=== PATIENT | male | born 1975 | race Caucasian/White ===

== ENCOUNTER 2016-11-07 00:48 | Observation (INO) | payer MEDICARE, OTHER ==
--- NOTE | 2016-11-07 01:50 | PDOC ---
History of Present Illness - General History Source: Patient Exam Limitations: No Limitations - History of Present Illness Initial Comments: 11/07/16 03:18 The patient is a 40-year-old male with a significant past medical history of asthma and hypothyroidism, and presents to the emergency department with abdominal pain since yesterday afternoon. He reports the abdominal pain is located in the epigastric region, and radiates inferiorly. He describes the pain became a burning sensation at 7pm yesterday. He reports he had soup with rice yesterday, and had a sandwich for breakfast today when the pain returned. He states he drank two glasses of milk in the afternoon with moderate relief. He denies taking any medications for the abdominal pain. He also reports mild dysuria. He is visiting from [place]. The patient is a [place] speaker. The patient denies chest pain, shortness of breath, headache and dizziness. The patient denies fever, chills, nausea, vomit, diarrhea and constipation. The patient denies frequency, urgency and hematuria. Allergies: aspirin Past Surgical History: None reported Social History: No toxic habits reported <Cookie Harris - Last Filed: 11/07/16 03:17> <Nancy Guerrero - Last Filed: 11/08/16 04:15> - General Chief Complaint: Pain Stated Complaint: STOMACH PAIN Time Seen by Provider: 11/07/16 01:50 Past History <Cookie Harris - Last Filed: 11/07/16 03:17> - Past Medical History Thyroid Disease: Yes (hypothyroid) - Psycho/Social/Smoking Cessation Hx Suicidal Ideation: No Smoking History: Never smoked Hx Alcohol Use: No Drug/Substance Use Hx: No <Nancy Guerrero - Last Filed: 11/08/16 04:15> - Past Medical History Allergies/Adverse Reactions: Allergies Allergy/AdvReac Type Severity Reaction Status Date / Time aspirin Allergy Rash Verified 11/07/16 01:07 Home Medications: Ambulatory Orders Albuterol Sulfate Inhaler - [Ventolin HFA Inhaler -] 2 inh PO Q4H PRN #1 inh 01/17 Levothyroxine Sodium [Synthroid] 200 mcg PO DAILY #30 tablet 11/07/16 Pantoprazole Sodium [Protonix -] 40 mg PO DAILY #30 tab 11/07/16 Review of Systems - Review of Systems Able to Perform ROS?: Yes Comments:: 11/07/16 03:18 CONSTITUTIONAL: Absent: fever, chills, diaphoresis, generalized weakness, malaise, loss of appetite HEENT: Absent: rhinorrhea, nasal congestion, throat pain, throat swelling, difficulty swallowing, mouth swelling, ear pain, eye pain, visual changes CARDIOVASCULAR: Absent: chest pain, syncope, palpitations, irregular heart rate, lightheadedness , peripheral edema RESPIRATORY: Absent: cough, shortness of breath, dyspnea with exertion, orthopnea, wheezing, stridor, hemoptysis GASTROINTESTINAL: Present: (+) abdominal pain Absent: abdominal distension, nausea, vomiting, diarrhea, constipation, melena, hematochezia GENITOURINARY: Present: (+) dysuria Absent: frequency, urgency, hesitancy, hematuria, flank pain, genital pain MUSCULOSKELETAL: Absent: myalgia, arthralgia, joint swelling SKIN: Absent: rash, itching, pallor HEMATOLOGIC/IMMUNOLOGIC: Absent: easy bleeding, easy bruising, lymphadenopathy, frequent infections ENDOCRINE: Absent: unexplained weight gain, unexplained weight loss, heat intolerance, cold intolerance NEUROLOGIC: Absent: headache, focal weakness or paresthesias, dizziness, unsteady gait, seizure, mental status changes, bladder or bowel incontinence PSYCHIATRIC: Absent: anxiety, depression, suicidal or homicidal ideation, hallucinations. <Cookie Harris - Last Filed: 11/07/16 03:17> *Physical Exam - Vital Signs Last Vital Signs Temp Pulse Resp BP Pulse Ox 98.0 F 63 18 123/76 99 11/07/16 01:05 11/07/16 01:05 11/07/16 01:05 11/07/16 01:05 11/07/16 01:05 - Physical Exam Comments: 11/07/16 03:20 GENERAL: Well developed, well nourished. Awake and alert. No acute distress. HEENT: Normocephalic, atraumatic. PERRLA, EOMI. No conjunctival pallor. Sclera are non- icteric. Moist mucous membranes. Oropharynx is clear. NECK: Supple. Full ROM. No JVD. Carotid pulses 2+ and symmetric, without bruits. No thyromegaly. No lymphadenopathy. CARDIOVASCULAR: Regular rate and rhythm. No murmurs, rubs, or gallops. Distal pulses are 2+ and symmetric. PULMONARY: No evidence of respiratory distress. Lungs clear to auscultation bilaterally. No wheezing, rales or rhonchi. ABDOMINAL: (+) Some gas. Soft. Non-tender. Non-distended. No rebound or guarding. No organomegaly. Normoactive bowel sounds. MUSCULOSKELETAL Normal range of motion at all joints. No bony deformities or tenderness. No CVA tenderness. EXTREMITIES: No cyanosis. No clubbing. No edema. No calf tenderness. SKIN: Warm and dry. Normal capillary refill. No rashes. No jaundice. NEUROLOGICAL: Alert, awake, appropriate. Cranial nerves 2-12 intact. No deficits to light touch and temperature in face, upper extremities and lower extremities. No motor deficits in the in face, upper extremities and lower extremities. Normoreflexic in the upper and lower extremities. Normal speech. Toes are down- going bilaterally. Gait is normal without ataxia. PSYCHIATRIC: Cooperative. Good eye contact. Appropriate mood and affect. <Cookie Harris - Last Filed: 11/07/16 03:17> - Vital Signs Last Vital Signs Temp Pulse Resp BP Pulse Ox 98.0 F 63 18 123/76 99 11/07/16 01:05 11/07/16 01:05 11/07/16 01:05 11/07/16 01:05 11/07/16 01:05 <Nancy Guerrero - Last Filed: 11/08/16 04:15> ED Treatment Course - LABORATORY CBC & Chemistry Diagram: 11/07/16 02:45 11/07/16 02:45 - ADDITIONAL ORDERS Additional order review: 11/07/16 02:45 RBC 4.02 MCV 93.3 MCHC 33.7 RDW 14.6 MPV 9.4 Neutrophils % 59.7 Lymphocytes % 28.5 Monocytes % 9.7 Eosinophils % 1.4 Basophils % 0.7 - Medications Given in the ED: ED Medications Discontinued Medications Generic Name Dose Route Start Last Admin Trade Name Maynorq PRN Reason Stop Dose Admin Al Hydroxide/Mg Hydroxide 30 ml 11/07/16 02:08 11/07/16 02:51 Mylanta Oral Suspension - PO 11/07/16 02:09 30 ml ONCE ONE Administration Pantoprazole Sodium 40 mg 11/07/16 02:08 11/07/16 02:51 Protonix - PO 11/07/16 02:09 40 mg ONCE ONE Administration <Cookie Harris - Last Filed: 11/07/16 03:17> - LABORATORY CBC & Chemistry Diagram: 11/07/16 02:45 11/07/16 02:45 <Nancy Guerrero - Last Filed: 11/08/16 04:15> Medical Decision Making - Medical Decision Making 11/08/16 03:58 Pt comes with feeling unwell. Abd pain and bloating and nonspecific malaise. [place]. He has a hx of hypothyroidism, and he takes synthroid Last time he checked his TSH and thyroid panel was over a year ago. Pt. will have basic labs and thyroid panel. His EKG is storm; TSH is 100s and he is hypothyroid, not well controlled. He will be admitted for eval of thyroid disorder and appropriate meds. <Nancy Guerrero - Last Filed: 11/08/16 04:15> *DC/Admit/Observation/Transfer - Attestations Scribe Attestion: 11/07/16 03:18 Documentation prepared by Cookie Harris, acting as medical nurse for Nancy Guerrero MD. <Cookie Harris - Last Filed: 11/07/16 03:17> - Discharge Dispostion Admit: Yes <Nancy Guerrero - Last Filed: 11/08/16 04:15> Diagnosis at time of Disposition: Hypothyroid, Abdominal pain - Discharge Dispostion Disposition: HOME Condition at time of disposition: Improved - Prescriptions
[2016-11-07] MEDS ORDERED: MAG HYDROX/AL HYDROX/SIMETH 30 ML UNIT-DOSE CUP PO ONE (02:08)
[2016-11-07] MEDS ORDERED: PANTOPRAZOLE 40 MG TABLET (FP) PO ONE (02:08)
[2016-11-07] MEDS ORDERED: PANTOPRAZOLE 40 MG TABLET (FP) ONE (02:47)
[2016-11-07] MEDS ORDERED: MAG HYDROX/AL HYDROX/SIMETH 30 ML UNIT-DOSE CUP ONE (02:48)
[2016-11-07 02:58] LABS: BASOPHIL 0.7 % (0-2.0); EOSINOPHIL 1.4 % (0-4.5); MCH 31.4 pg (25.7-33.7); MCHC 33.7 g/dl (32.0-35.9); MEAN CELL VOLUME 93.3 fl (80-96); MEAN PLT VOLUME 9.4 fl (7.5-11.1); NEUTROPHILS 59.7 % (42.8-82.8); PLATELET COUNT 214 K/MM3 (134-434); RDW 14.6 % (11.9-15.9); WHITE BLOOD COUNT 5.1 K/mm3 (4.0-10.0)
[2016-11-07 03:25] LABS: ALBUMIN 4.2 g/dl (3.4-5.0); ANION GAP 7 (8-16); BILIRUBIN,TOTAL 0.5 mg/dL (0.2-1.0); CALCIUM 8.6 mg/dL (8.5-10.1); CO2 29 mmol/L (21-32); COCKROFT - GAULT 110.66; CREATININE 0.9 mg/dL (0.7-1.3); GLUCOSE,RANDOM 75 mg/dL (74-106); SGOT/AST 35 U/L (15-37); SGPT/ALT 45 U/L (12-78); TOT PROT 7.2 g/dl (6.4-8.2)
[2016-11-07 03:53] LABS: ALK PHOS 70 U/L (45-117)
[2016-11-07] MEDS ORDERED: SODIUM CHLORIDE 0.9% 500 ML INFUS.BAG IV ONE (04:40)
--- NOTE | 2016-11-07 04:49 | PN ---
Teaching Attending Note Name of Resident: Pablo Mustafa ATTENDING PHYSICIAN STATEMENT I saw and evaluated the patient. I reviewed the resident's note and discussed the case with the resident. I agree with the resident's findings and plan as documented. SUBJECTIVE: 40 yo M with hx of asthma and hypothyriodism who presents with abdominal pain. Notes his abdominal pain is burning in nature, and is intermittent. States pain started after eating and only happened once. No chest pain, pressure, headaches , dry skin or shortness of breath. Pt. states that in [facility] in June and his Synthroid dose was 200mcg, notes he got his next RX at [facility] on 06/18 for 30 days of Levothyroxine and never followed up after his discharge from the ED at that time. His next RX was again from [facility] , with no follow up with same Levothyroxine dose. Pt. states he is compliant with medication, but unsure of dates of when he received his Levothyroxine. Denies constipation or n/v/d. OBJECTIVE: Physical: Vital Signs Period Temp Pulse Resp BP Sys/Fischer Pulse Ox Last 24 Hr 98.0 F 63 18 123/76 99 GEN: Young Man in NAD, Resting in bed able to speak full sentences. HEENT: NCAT, PERRL, throat without erythema or exudates. CARD: RRR S1, S2 ABD: BSX4, mild periepigastic pain, non-distended, non- tender EXT: - C/C/E CXR/Abd Xray- Pending EKG- Pending ASSESSMENT AND PLAN: 40 yo M with pmhx of hypothyriodism and asthma who presents with abdominal pain 1.) Abdominal Pain - Most likely gastritis - Protonix 2.) Hypothyriodism - Inc. TSH- Stat FT4 - On home Synthriod dose of 200mcg as per pt., Await FT4 and adjust dose accordingly - Needs outpt. PCP and follow up in 6 weeks - Ekg 3.) Asthma - C/w nebs 4.) DVT ppx - Low risk- [facility] in Obs
[2016-11-07] MEDS ORDERED: FAMOTIDINE 20 MG/50 ML IVPB 50 ML IVPB ONE ×2 (04:53→06:17)
--- NOTE | 2016-11-07 05:44 | HP ---
CHIEF COMPLAINT: Epigastric pain PCP: None HISTORY OF PRESENT ILLNESS: 40 year old male with pmh of Hyperthyroidism, asthma, sinusitis presented to the emergency room with complaint of epigastric pain. the symptoms started last night and at 7pm after eating rice and soup, burning, constant, no radiating, moderate intensity. Pt went away when he went to sleep. Ths morning upon waking up the pain has return. The epigatsric pain improved with Maalox and protonix which The received in the ED. The patient said he never had this pain before, denies h/o heartburn or acid. Pt denies any fever, chills, nausea, vomiting, diarrhea or constipation, no sick contact. The patient also complained of pain and burning on urination, no penile discharge, no rash, no lesion. The Patient also said he has been very complaint with his levothyroxine, 200mcg daily. he only had a 30 day supply from his last ED visit at [facility], he went to [facility] where he said he got the same medication. he complained of occasional tiredness, fatigue, cold intolerance, dry skin but no weight gain, no decreased in appetite, no hair loss, no change in vision, no constipation, no muscle weakness. ER course was notable for: (1) Maalox, Protonix (2)CXR, abdominal Xray Recent Travel: [facility] PAST MEDICAL HISTORY: Hyperthyroidism, asthma, sinusitis PAST SURGICAL HISTORY: penile circumcision Social History: Smoking:denies Alcohol:denies Drugs: denies Family History: Grandmother with thyroid disease, mother with hypertension Allergies aspirin Allergy (Verified 11/07/16 01:07) Rash HOME MEDICATIONS: Home Medications Medication Instructions Recorded Albuterol Sulfate Inhaler - 2 inh PO Q4H PRN #1 inh 06/20/16 [Ventolin Hfa Inhaler -] Levothyroxine Sodium [Synthroid] 200 mcg PO DAILY #30 tablet 06/20/16 REVIEW OF SYSTEMS CONSTITUTIONAL: generalized weakness sometimes Absent: fever, chills, diaphoresis, malaise, loss of appetite, weight change HEENT: Absent: rhinorrhea, nasal congestion, throat pain, throat swelling, difficulty swallowing, mouth swelling, ear pain, eye pain, visual changes CARDIOVASCULAR: Absent: chest pain, syncope, palpitations, irregular heart rate, lightheadedness , peripheral edema RESPIRATORY: Absent: cough, shortness of breath, dyspnea with exertion, orthopnea, wheezing, stridor, hemoptysis GASTROINTESTINAL:abdominal pain Absent: abdominal distension, nausea, vomiting, diarrhea, constipation, melena , hematochezia GENITOURINARY: Absent: dysuria, frequency, urgency, hesitancy, hematuria, flank pain, genital pain MUSCULOSKELETAL: Absent: myalgia, arthralgia, joint swelling, back pain, neck pain SKIN: Absent: rash, itching, pallor HEMATOLOGIC/IMMUNOLOGIC: Absent: easy bleeding, easy bruising, lymphadenopathy, frequent infections ENDOCRINE:cold intolerance Absent: unexplained weight gain, unexplained weight loss, heat intolerance, NEUROLOGIC: Absent: headache, focal weakness or paresthesias, dizziness, unsteady gait, seizure, mental status changes, bladder or bowel incontinence PSYCHIATRIC: Absent: anxiety, depression, suicidal or homicidal ideation, hallucinations. PHYSICAL EXAMINATION Vital Signs - 24 hr 11/07/16 01:05 Temperature 98.0 F Pulse Rate 63 Respiratory 18 Rate Blood Pressure 123/76 O2 Sat by Pulse 99 Oximetry (%) GENERAL: Awake, alert, and fully oriented, in no acute distress. HEAD: Normal with no signs of trauma. EYES: Pupils equal, round and reactive to light, extraocular movements intact, sclera anicteric, conjunctiva clear. No lid lag. EARS, NOSE, THROAT: Ears normal, nares patent, oropharynx clear without exudates. Moist mucous membranes. NECK: Normal range of motion, supple without lymphadenopathy, JVD, or masses. LUNGS: Breath sounds equal, clear to auscultation bilaterally. No wheezes, and no crackles. No accessory muscle use. HEART: Regular rate and rhythm, normal S1 and S2 without murmur, rub or gallop. ABDOMEN: Soft, tender, not distended, normoactive bowel sounds, no guarding, no rebound, no masses. No hepatomegaly or splenomegaly. MUSCULOSKELETAL: Normal range of motion at all joints. No bony deformities or tenderness. No CVA tenderness. UPPER EXTREMITIES: 2+ pulses, warm, well-perfused. No cyanosis. No clubbing. No peripheral edema. LOWER EXTREMITIES: 2+ pulses, warm, well-perfused. No calf tenderness. No peripheral edema. NEUROLOGICAL: Cranial nerves II-XII intact. Normal speech. Normal gait. PSYCHIATRIC: Cooperative. Good eye contact. Appropriate mood and affect. SKIN: Warm, dry, normal turgor, no rashes or lesions noted, normal capillary refill. Laboratory Results - last 24 hr 11/07/16 11/07/16 02:45 02:45 WBC 5.1 RBC 4.02 Hgb 12.6 Hct 37.5 MCV 93.3 MCHC 33.7 RDW 14.6 Plt Count 214 MPV 9.4 Neutrophils % 59.7 Lymphocytes % 28.5 Monocytes % 9.7 Eosinophils % 1.4 Basophils % 0.7 Sodium 139 Potassium 3.7 Chloride 103 Carbon Dioxide 29 Anion Gap 7 L BUN 17 Creatinine 0.9 Creat Clearance w eGFR > 60 Random Glucose 75 Calcium 8.6 Total Bilirubin 0.5 AST 35 ALT 45 Alkaline Phosphatase 70 Total Protein 7.2 Albumin 4.2 TSH 125.00 H ASSESSMENT/PLAN: 40 year old male with pmh of Hyperthyroidism, asthma, sinusitis presented to the emergency room with complaint of burning epigastric pain which improved with Maalox and protonix. Pt was found to have a TSH of 125. While the patient profess his compliance to his levothyroxine he only had a month supply back in June and he refilled the medication in [facility]. Abdominal Pain r/o GERD, gastritis, PUD Pain Improved with protonix and Maalox normal CBC, chemistry and LFTs Lipase Xray of abdomen CXR trial of PPI or H2 antagonist Hypothyrodism Likely related to non compliance or wrong medication TSH 125 Free T3, Free T4 EKG Will resume Levothyroxine 200mcg PO daily Case management to help with insurance or free clinic FEN Fluid: none Electrolytes: normal Chemistry Nutrition: regular diet DVT: early ambulation Disposition: Observation in [facility] Visit type - Emergency Visit Emergency Visit: Yes ED Registration Date: 11/07/16 Care time: The patient presented to the Emergency Department on the above date and was hospitalized for further evaluation of their emergent condition. - New Patient This patient is new to me today: Yes - Critical Care Critical Care patient: No
[2016-11-07] MEDS ORDERED: LEVOTHYROXINE NA 200 MCG TABLET PO SCH (06:00)
[2016-11-07] MEDS ORDERED: ALBUTEROL SO4 6.7 GM HFA INHALER IH PRN (06:09)
[2016-11-07 06:56] VITALS: BMI 20.8
[2016-11-07 07:28] LABS: FREE T4 0.79 ng/dl (0.76-1.16)
[2016-11-07] MEDS ORDERED: MAG HYDROX/AL HYDROX/SIMETH 30 ML UNIT-DOSE CUP PO PRN (08:29)
[2016-11-07] MEDS ORDERED: PANTOPRAZOLE 40 MG TABLET (FP) PO SCH (10:00)
[2016-11-07] MEDS ORDERED: LEVOTHYROXINE NA 200 MCG TABLET PO ONE (11:35)
--- NOTE | 2016-11-07 13:07 | DS ---
Physical Exam: SUBJECTIVE: Patient seen and examined at bedside. OBJECTIVE: Vital Signs Period Temp Pulse Resp BP Sys/Fischer Pulse Ox Last 24 Hr 98 F 59-60 18-20 118-121/72-84 100-100 PHYSICAL EXAM GENERAL: The patient is awake, alert, and fully oriented, in no acute distress. HEAD: Normal with no signs of trauma. EYES: PERRL, extraocular movements intact, sclera anicteric, conjunctiva clear. ENT: Ears normal, nares patent, oropharynx clear without exudates, moist mucous membranes. NECK: Trachea midline, full range of motion, supple. LUNGS: Breath sounds equal, clear to auscultation bilaterally, no wheezes, no crackles, no accessory muscle use. HEART: Regular rate and rhythm, S1, S2 without murmur, rub or gallop. ABDOMEN: Soft, nontender, nondistended, normoactive bowel sounds, no guarding, no rebound, no hepatosplenomegaly, no masses. EXTREMITIES: 2+ pulses, warm, well-perfused, no edema. NEUROLOGICAL: Cranial nerves II through XII grossly intact. Normal speech, gait not observed. LABS CBCD WBC 5.1 K/mm3 (4.0-10.0) 11/07/16 02:45 RBC 4.02 M/mm3 (4.00-5.60) 11/07/16 02:45 Hgb 12.6 GM/dL (11.7-16.9) 11/07/16 02:45 Hct 37.5 % (35.4-49) 11/07/16 02:45 MCV 93.3 fl (80-96) 11/07/16 02:45 MCHC 33.7 g/dl (32.0-35.9) 11/07/16 02:45 RDW 14.6 % (11.9-15.9) 11/07/16 02:45 Plt Count 214 K/MM3 (134-434) 11/07/16 02:45 MPV 9.4 fl (7.5-11.1) 11/07/16 02:45 CMP Sodium 139 mmol/L (136-145) 11/07/16 02:45 Potassium 3.7 mmol/L (3.5-5.1) 11/07/16 02:45 Chloride 103 mmol/L (98-107) 11/07/16 02:45 Carbon Dioxide 29 mmol/L (21-32) 11/07/16 02:45 Anion Gap 7 (8-16) L 11/07/16 02:45 BUN 17 mg/dL (7-18) 11/07/16 02:45 Creatinine 0.9 mg/dL (0.7-1.3) 11/07/16 02:45 Creat Clearance w eGFR > 60 (>60) 11/07/16 02:45 Calcium 8.6 mg/dL (8.5-10.1) 11/07/16 02:45 Total Bilirubin 0.5 mg/dL (0.2-1.0) 11/07/16 02:45 AST 35 U/L (15-37) 11/07/16 02:45 ALT 45 U/L (12-78) 11/07/16 02:45 Alkaline Phosphatase 70 U/L (45-117) 11/07/16 02:45 Total Protein 7.2 g/dl (6.4-8.2) 11/07/16 02:45 Albumin 4.2 g/dl (3.4-5.0) 11/07/16 02:45 Laboratory Results - last 24 hr 11/07/16 11/07/16 06:22 06:22 Lipase 140 TSH 132.00 H D Free T4 0.79 HOSPITAL COURSE: Date of Admission:11/07/16 Date of Discharge: 11/07/16 40 year old male with PMH of hyperthyroidism and asthma,sinusitis presented to the emergency room with a complaint of burning epigastric pain which improved with Maalox and protonix. Pt was found to have a TSH of 125. Abdominal Pain r/o GERD, gastritis, PUD Pain Improved with protonix and Maalox normal CBC, chemistry and LFTs Lipase wnl Xray of abdomen: no acute pathology CXR: unremarkable Tolerated PO Hypothyrodism Likely related to non compliance or wrong medication TSH 125 Resumed home dose of Levothyroxine 200mcg PO daily Minutes to complete discharge: 35 Discharge Summary Reason For Visit: ABDOMINAL PAIN, HYPOTHYROID Current Active Problems Abdominal pain (Acute) Hypothyroid (Acute) Condition: Improved - Instructions Diet, Activity, Other Instructions: Two prescriptions have been sent to your pharmacy. One is for synthroid and the other is for protonix. Take these medications as directed. It is very important you follow up with your primary care provider Dr. Virginia Pritchard [phone] within one week of your discharge. You will need blood work to check your thyroid levels. Return to the emergency department for any new or worsening symptoms. Referrals: Virginia Pritchard Dr. [Other] - 1 Week Disposition: HOME - Home Medications Comprehensive Discharge Medication List: Ambulatory Orders Albuterol Sulfate Inhaler - [Ventolin HFA Inhaler -] 2 inh PO Q4H PRN #1 inh Levothyroxine Sodium [Synthroid] 200 mcg PO DAILY #30 tablet 11/07/16 Pantoprazole Sodium [Protonix -] 40 mg PO DAILY #30 tab 11/07/16 This patient is new to me today: Yes Date on this admission: 11/16/16 Emergency Visit: Yes ED Registration Date: 11/07/16 Care time: The patient presented to the Emergency Department on the above date and was hospitalized for further evaluation of their emergent condition. Critical Care patient: No - Discharge Referral Referred to [facility] Med P.C.: No
[2016-11-07 13:24] VITALS: BP 141/74; PULSE 62; TEMP 97.9
--- NOTE | 2016-11-08 09:08 | EKG ---
Test Reason : Blood Pressure : / mmHG Vent. Rate : 051 BPM Atrial Rate : 051 BPM P-R Int : 144 ms QRS Dur : 098 ms QT Int : 410 ms P-R-T Axes : 063 -03 048 degrees QTc Int : 377 ms SINUS BRADYCARDIA OTHERWISE NORMAL ECG NO PREVIOUS ECGS AVAILABLE Confirmed by SAEED BERG MD ([id number]) on 11/08/2016 9:07:30 AM Referred By: Confirmed By:SAEED BERG MD
== END 2016-11-07 14:06 | disposition home or self-care (01) | DRG 241 ==
LOC: JER 00:48 → JERBED 04:43 → INTOOBSV 04:43 → UNDOADMOB 04:43 → JERBED 05:35 → UNDOADMIN 05:35 → JERBED 06:07 → J6S 06:49 → JERBED 06:49 → J6S 06:49 → UNDODISOB 14:06
PROVIDERS: ADMIT Internal Medicine; ATTEND Nurse Practitioner Acute Care
DX: R10.13 Epigastric pain (principal); R10.9 Unspecified abdominal pain; E03.9 Hypothyroidism, unspecified; J45.909 Unspecified asthma, uncomplicated
CPT/HCPCS: 36415; 71010-TC; 74000-TC; 80053; 83690; 84439; 84443; 84481; 85025; 93005; 93010; 99285-25; G0378

== ENCOUNTER 2016-11-16 18:12 | Emergency (ER) | payer SELFPAY ==
[2016-11-16 18:16] VITALS: BP 133/86; PULSE 76; TEMP 98.3; BMI 21.6
--- NOTE | 2016-11-16 20:06 | PDOC ---
History of Present Illness - General History Source: Patient Exam Limitations: No Limitations - History of Present Illness Initial Comments: 11/16/16 20:23 The patient is a 40 year old male with significant past medical history of hyperthyroidism, asthma, and sinusitis who presents to the ED for right upper quadrant pain. Patient describes pain as a burning sensation that is nonradiating with associated nausea, but no vomiting or diarrhea. He also has complaints of dysuria, but no hematuria, urgency, frequency, or penile discharge. Patient was recently seen in the ED on 11/07 for similar complaints where he was admitted. As per patients records, patient admits to being compliant with his synthroid medications and when recently traveled to [facility] he received the same medications. While he was admitted, patient was found to have a TSH of 125. Patient was treated and discharged later on that day. He returns today for same complaint. The patient denies fever, chills, cough, SOB, chest pain, and palpitations. Allergies: aspirin Social History: No alcohol, tobacco, or drug use reported. Past Surgical History: None reported PCP: None reported <Annabel Benson - Last Filed: 11/16/16 20:23> - General History Source: Patient <LucioWillis ramirez - Last Filed: 11/16/16 21:12> - General Chief Complaint: Pain Stated Complaint: PAIN Time Seen by Provider: 11/16/16 20:06 Past History <Annabel Benson - Last Filed: 11/16/16 20:23> - Past Medical History Asthma: Yes Thyroid Disease: Yes (hypothyroid) - Psycho/Social/Smoking Cessation Hx Suicidal Ideation: No Smoking History: Never smoked Have you smoked in the past 12 months: No Information on smoking cessation initiated: No Hx Alcohol Use: No Drug/Substance Use Hx: No Substance Use Type: None Hx Substance Use Treatment: No <Willis Martin - Last Filed: 11/16/16 21:12> - Past Medical History Allergies/Adverse Reactions: Allergies Allergy/AdvReac Type Severity Reaction Status Date / Time aspirin Allergy Rash Verified 11/16/16 18:16 Home Medications: Ambulatory Orders Albuterol Sulfate Inhaler - [Ventolin HFA Inhaler -] 2 inh PO Q4H PRN #1 inh 01/17 Levothyroxine Sodium [Synthroid] 200 mcg PO DAILY #30 tablet 11/07/16 Pantoprazole Sodium [Protonix -] 40 mg PO DAILY #30 tab 11/16/16 Review of Systems - Review of Systems Able to Perform ROS?: Yes Comments:: 11/16/16 20:23 CONSTITUTIONAL: Absent: fever, no chills, no fatigue EYES: Absent: visual changes ENT: Absent: ear pain, no sore throat CARDIOVASCULAR: Absent: chest pain, no palpitations RESPIRATORY: Absent: cough, no SOB GI: +right upper quadrant pain, nausea Absent: no vomiting, no constipation, no diarrhea GENITOURINARY: +dysuria Absent: frequency, no hematuria MUSCULOSKELETAL: Absent: back pain, no arthralgia, no myalgia SKIN: Absent: rash NEURO: Absent: headache <Annabel Benson - Last Filed: 11/16/16 20:23> *Physical Exam - Vital Signs Last Vital Signs Temp Pulse Resp BP Pulse Ox 98.3 F 76 18 133/86 99 11/16/16 18:13 11/16/16 18:13 11/16/16 18:13 11/16/16 18:13 11/16/16 18:13 - Physical Exam Comments: 11/16/16 20:23 GENERAL: Well-appearing, well-nourished. No apparent distress. HEENT: Normocephalic, atraumatic. PERRL, EOM intact. CARDIOVASCULAR: Normal S1, S2. Regular rate and rhythm. PULMONARY: Clear to auscultation bilaterally. ABDOMEN: Soft, non-distended, non-tender. EXTREMITIES: Normal ROM in all four extremities. No gross deformities. SKIN: Warm, dry. No rash NEUROLOGICAL: No focal neurological deficits. <Annabel Benson - Last Filed: 11/16/16 20:23> - Vital Signs Last Vital Signs Temp Pulse Resp BP Pulse Ox 98.3 F 76 18 133/86 99 11/16/16 18:13 11/16/16 18:13 11/16/16 18:13 11/16/16 18:13 11/16/16 18:13 <Willis Martin - Last Filed: 11/16/16 21:12> ED Treatment Course - LABORATORY CBC & Chemistry Diagram: 11/16/16 20:13 11/16/16 20:13 <Annabel Benson - Last Filed: 11/16/16 20:23> - LABORATORY CBC & Chemistry Diagram: 11/16/16 20:13 11/16/16 20:13 <Willis Martin - Last Filed: 11/16/16 21:12> Medical Decision Making - Medical Decision Making 11/16/16 21:11 Dr. Martin: The scribe's documentation has been prepared under my direction and personally reviewed by me in its entirery. I confirm that the note above accurately reflects all work, treatment, procedures, and medical decision making performed by me. Labs appear to be stable. Pt afebrile. Pt to follow up with GI in the next few days. <Willis Martin - Last Filed: 11/16/16 21:12> *DC/Admit/Observation/Transfer - Attestations Scribe Attestion: 11/16/16 20:23 Documentation prepared by Annabel Benson, acting as medical records secretary for Willis Martin MD/DO. <Annabel Benson - Last Filed: 11/16/16 20:23> - Discharge Dispostion Admit: No <Willis Martin - Last Filed: 11/16/16 21:12> Diagnosis at time of Disposition: Abdominal pain - Discharge Dispostion Disposition: HOME Condition at time of disposition: Stable - Referrals Referrals: Miriam Laguerre MD [Staff Physician] - - Patient Instructions Printed Discharge Instructions: DI for Abdominal Pain-Adult Print Language: ETHIOPIAN - Post Discharge Activity Work/School Note: Back to Work
[2016-11-16] MEDS ORDERED: SODIUM CHLORIDE 1,000 ML IV STA (20:09)
[2016-11-16] MEDS ORDERED: PANTOPRAZOLE SODIUM 40 MG in SODIUM CHLORIDE 100 ML IVPB ONE (20:09)
[2016-11-16] MEDS ORDERED: PANTOPRAZOLE SODIUM 100 ML IVPB ONE (20:21)
[2016-11-16 20:25] LABS: BASOPHIL 0.8 % (0-2.0); EOSINOPHIL 1.5 % (0-4.5); MCH 30.9 pg (25.7-33.7); MCHC 32.8 g/dl (32.0-35.9); MEAN PLT VOLUME 9.7 fl (7.5-11.1); NEUTROPHILS 53.7 % (42.8-82.8); PLATELET COUNT 223 K/MM3 (134-434); RDW 14.6 % (11.9-15.9); WHITE BLOOD COUNT 5.3 K/mm3 (4.0-10.0)
[2016-11-16 20:38] LABS: INR 1.19 (0.82-1.09); PROTHROMBIN TIME (PATIENT) 13.1 SEC (9.98-11.88)
[2016-11-16 20:54] LABS: ALBUMIN 4.8 g/dl (3.4-5.0); ALK PHOS 82 U/L (45-117); AMYLASE 144 U/L (25-115); ANION GAP 6 (8-16); BILIRUBIN,TOTAL 0.5 mg/dL (0.2-1.0); CALCIUM 9.2 mg/dL (8.5-10.1); CO2 31 mmol/L (21-32); COCKROFT - GAULT 90.54; CREATININE 1.1 mg/dL (0.7-1.3); GLUCOSE,RANDOM 77 mg/dL (74-106); MAGNESIUM 2.5 mg/dL (1.8-2.4); SGOT/AST 33 U/L (15-37); SGPT/ALT 49 U/L (12-78); TOT PROT 8.1 g/dl (6.4-8.2)
[2016-11-16 21:00] LABS: FREE T4 1.6 ng/dl (0.76-1.16)
== END 2016-11-16 21:25 | disposition home or self-care (01) ==
LOC: JER 18:12
PROC: 3E033GC Introduction of Other Therapeutic Substance into Peripheral Vein, Percutaneous Approach (ICD-10-PCS; principal; 2016-11-16)
PROC: 3E0337Z Introduction of Electrolytic and Water Balance Substance into Peripheral Vein, Percutaneous Approach (ICD-10-PCS; 2016-11-16)
DX: R10.11 Right upper quadrant pain (principal); J45.909 Unspecified asthma, uncomplicated; E07.9 Disorder of thyroid, unspecified
CPT/HCPCS: 36415; 80053; 82150; 83690; 83735; 84439; 84443; 84481; 85025; 85610; 99282-25

== ENCOUNTER 2024-01-17 12:17 | Observation (INO) | payer OTHER ==
[2024-01-17 12:26] VITALS: BMI 22.6
[2024-01-17 14:10] LABS: BASO % 0.4 % (0-2.0); HEMATOCRIT 40.6 % (35.4-49); HEMOGLOBIN 13.6 GM/dL (11.7-16.9); LYMPH % 27.6 % (8-40); MCH 31.2 pg (25.7-33.7); MCHC 33.6 g/dl (32.0-35.9); MEAN CELL VOLUME 92.9 fl (80-96); MEAN PLT VOLUME 9.6 fl (7.5-11.1); MONO % 11.6 % (3.8-10.2); NEUT % 59.4 % (42.8-82.8); PLATELET COUNT 231 10^3/uL (134-434); RBC 4.37 M/mm3 (4.00-5.60); RDW 13.7 % (11.9-15.9); WHITE BLOOD COUNT 5.8 K/mm3 (4.0-10.0)
[2024-01-17 14:27] LABS: CALCIUM 9.2 mg/dL (8.5-10.1)
[2024-01-17 14:28] LABS: ALBUMIN 3.9 g/dl (3.4-5.0); BLOOD UREA NITROGEN 12.6 mg/dL (7-18); MAGNESIUM 2.1 mg/dL (1.8-2.4)
[2024-01-17 14:31] LABS: CREATININE 0.9 mg/dL (0.55-1.3)
[2024-01-17 14:32] LABS: BILIRUBIN,TOTAL 0.6 mg/dL (0.2-1)
[2024-01-17 15:20] LABS: HIV INTERPRETATION NEGATIVE (NEGATIVE)
[2024-01-17] MEDS ORDERED: LEVALBUTEROL HCL 0.63 MG/3 ML VIAL.NEB. IH PRN (21:43)
[2024-01-18 06:14] LABS: HEMATOCRIT 42.2 % (35.4-49); HEMOGLOBIN 14.2 GM/dL (11.7-16.9); MCH 31.2 pg (25.7-33.7); MCHC 33.7 g/dl (32.0-35.9); MEAN CELL VOLUME 92.8 fl (80-96); MEAN PLT VOLUME 9.7 fl (7.5-11.1); PLATELET COUNT 227 10^3/uL (134-434); RBC 4.55 M/mm3 (4.00-5.60); WHITE BLOOD COUNT 6.1 K/mm3 (4.0-10.0)
[2024-01-18] MEDS ORDERED: LEVOTHYROXINE NA 100 MCG TABLET (FP) ONE (06:27)
[2024-01-18] MEDS ORDERED: LEVOTHYROXINE NA 75 MCG TABLET (FP) ONE (06:27)
[2024-01-18 06:33] LABS: POTASSIUM 4.3 mmol/L (3.5-5.1)
[2024-01-18 06:34] LABS: CALCIUM 9.1 mg/dL (8.5-10.1)
[2024-01-18 06:36] LABS: BLOOD UREA NITROGEN 17.2 mg/dL (7-18); MAGNESIUM 2.1 mg/dL (1.8-2.4)
[2024-01-18 06:38] LABS: CREATININE 0.9 mg/dL (0.55-1.3); PHOSPHOROUS 3.4 mg/dL (2.5-4.9)
[2024-01-18] MEDS: LEVOTHYROXINE 150 MCG, LEVOTHYROXINE 25 MCG PO SCH (06:39)
[2024-01-18 06:44] LABS: N-TERMINAL BNP 22.2 pg/ml (5-125)
[2024-01-18] MEDS ORDERED: LEVOTHYROXINE NA 200 MCG TABLET PO SCH (07:00)
[2024-01-18] MEDS ORDERED: PANTOPRAZOLE 40 MG TABLET PO ONE (10:16)
[2024-01-18] MEDS ORDERED: ENOXAPARIN NA (PORCINE) 40 MG/0.4 ML DISP.SYRIN SQ ONE (10:17)
[2024-01-18] MEDS: ENOXAPARIN NA (PORCINE) 40 MG/0.4 ML DISP.SYRIN SQ SCH (10:22)
[2024-01-18] MEDS: PANTOPRAZOLE 40 MG TABLET PO SCH (10:23)
[2024-01-18 12:08] VITALS: RESP 18
[2024-01-18 15:34] VITALS: BP 119/80; PULSE 62; TEMP 98
== END 2024-01-18 16:10 | disposition home or self-care (01) ==
LOC: JER 12:17 → JERBED 14:55
PROVIDERS: ADMIT Internal Medicine; ATTEND Internal Medicine
PROC: 3E023GC Introduction of Other Therapeutic Substance into Muscle, Percutaneous Approach (ICD-10-PCS; principal; 2024-01-17)
DX: R00.2 Palpitations (principal); R00.8 Other abnormalities of heart beat; E03.9 Hypothyroidism, unspecified; J45.909 Unspecified asthma, uncomplicated; G89.29 Other chronic pain; Z88.8 Allergy status to other drugs, medicaments and biological substances
CPT/HCPCS: 0241U-QW; 36415; 71046-TC-FY; 80048; 80053; 83735; 83880; 84100; 84439; 84443; 84484; 85025; 85027; 87389; 93005; 93010; 93306-TC; 96372; 99285-25; G0378